=== PATIENT | female | born 1960 | race Caucasian/White ===

== ENCOUNTER 2018-10-21 12:53 | Observation (INO) | payer MEDICARE, BC ==
[2018-10-21 14:53] LABS: ADD MAN DIFF? NO
[2018-10-21 15:08] LABS: BASOPHIL # 0.1 10^3/ul (0.0-0.1); BASOPHILS % 1.1 % (0.0-2.0); EOSINOPHILS # 0.3 10^3/ul (0.0-0.5); EOSINOPHILS % 3.6 % (0.0-7.0); HEMATOCRIT 48.3 % (37.0-47.0); HEMOGLOBIN 15.3 g/dl (12.0-16.0); LYMPHOCYTES # 1.4 10^3/ul (0.8-2.9); LYMPHOCYTES % 16.9 % (15.0-51.0); MEAN CORPUSCULAR HEMOGLOBIN 27.6 pg (29.0-33.0); MEAN CORPUSCULAR HGB CONC 31.7 g/dl (32.0-37.0); MEAN PLATELET VOLUME 10.6 fl (7.4-10.4); MONOCYTE # 0.6 10^3/ul (0.3-0.9); NEUTROPHIL # 5.9 10^3/ul (1.6-7.5); PLATELET COUNT 288 10^3/UL (140-415); RED BLOOD COUNT 5.55 10^6/ul (4.20-5.40); RED CELL DISTRIBUTION WIDTH 17.3 % (11.5-14.5)
[2018-10-21 15:08] LABS: WHITE BLOOD COUNT 8.3 10^3/ul (4.8-10.8)
[2018-10-21 15:30] LABS: ALANINE AMINOTRANSFERASE 12 IU/L (13-69); ALBUMIN 4.5 g/dl (3.3-4.9); ALBUMIN/GLOBULIN RATIO 1.12; ALKALINE PHOSPHATASE 182 IU/L (42-121); ANION GAP 12 (5-13); ASPARTATE AMINO TRANSFERASE 27 IU/L (15-46); BILIRUBIN,INDIRECT 1.1 mg/dl (0-1.1); BILIRUBIN,TOTAL 1.2 mg/dl (0.2-1.3); BLOOD UREA NITROGEN 10 mg/dl (7-20); CALCIUM 10.3 mg/dl (8.4-10.2); CARBON DIOXIDE 25 mmol/L (21-31); CHLORIDE 103 mmol/L (97-110); CREATININE 0.86 mg/dl (0.44-1.00); Estimated GFR > 60 mL/min (>60); GLUCOSE 97 mg/dl (70-220); LIPASE 68 U/L (23-300); POTASSIUM 4.2 mmol/L (3.5-5.1); SODIUM 140 mmol/L (135-144); TOTAL PROTEIN 8.5 g/dl (6.1-8.1)
[2018-10-21 15:36] LABS: ETHANOL < 10.0 mg/dl (0-0)
[2018-10-21] MEDS ORDERED: HYDROCODONE/APAP (10/325) TAB PO (20:30)
[2018-10-21] MEDS ORDERED: PROPRANOLOL 20 MG TAB PO (20:30)
[2018-10-21] MEDS ORDERED: ACETAMINOPHEN 500 MG TAB PO (21:00)
[2018-10-21] MEDS: METOPROLOL 50 MG TAB PO (21:00)
[2018-10-21] MEDS: ALBUTEROL/IPRATROPIUM (NEB) 3 ML AMP HHN (21:30)
[2018-10-21 22:01] LABS: IRON 55 ug/dl (35-150)
[2018-10-21 22:11] LABS: % IRON SATURATION 10 % SAT (22-52); TOTAL IRON BINDING CAPACITY 545 ug/dl (241-421)
[2018-10-21] MEDS: DEXTROSE 5%-0.9% NACL 1,000 ML IV (22:41)
[2018-10-21] MEDS: APIXABAN 5 MG TABLET PO (22:41)
[2018-10-21] MEDS: ZOLPIDEM 5 MG TAB PO (23:08)
[2018-10-22 03:07] LABS: CARCINOEMBRYONIC ANTIGEN 5.7 ng/ml (0.0-5.0)
[2018-10-22] MEDS: PANTOPRAZOLE 40 MG INJ IV (05:44)
[2018-10-22 06:15] LABS: ADD MAN DIFF? NO
[2018-10-22 06:23] LABS: BASOPHIL # 0.1 10^3/ul (0.0-0.1); BASOPHILS % 1.1 % (0.0-2.0); EOSINOPHILS # 0.2 10^3/ul (0.0-0.5); EOSINOPHILS % 4.1 % (0.0-7.0); HEMATOCRIT 42.6 % (37.0-47.0); HEMOGLOBIN 13.2 g/dl (12.0-16.0); LYMPHOCYTES # 1.4 10^3/ul (0.8-2.9); LYMPHOCYTES % 25.4 % (15.0-51.0); MEAN CORPUSCULAR HEMOGLOBIN 27.2 pg (29.0-33.0); MEAN CORPUSCULAR VOLUME 87.8 fl (82.0-101.0); MEAN PLATELET VOLUME 10.1 fl (7.4-10.4); MONOCYTE # 0.5 10^3/ul (0.3-0.9); MONOCYTES % 9.3 % (0.0-11.0); NEUTROPHIL # 3.4 10^3/ul (1.6-7.5); NEUTROPHILS % 59.7 % (39.0-77.0); PLATELET COUNT 229 10^3/UL (140-415); RED BLOOD COUNT 4.85 10^6/ul (4.20-5.40)
[2018-10-22 06:23] LABS: WHITE BLOOD COUNT 5.7 10^3/ul (4.8-10.8)
[2018-10-22 06:52] LABS: ALANINE AMINOTRANSFERASE 11 IU/L (13-69); ALBUMIN 3.8 g/dl (3.3-4.9); ALBUMIN/GLOBULIN RATIO 1.18; ALKALINE PHOSPHATASE 136 IU/L (42-121); ANION GAP 12 (5-13); ASPARTATE AMINO TRANSFERASE 27 IU/L (15-46); BLOOD UREA NITROGEN 11 mg/dl (7-20); CALCIUM 9.7 mg/dl (8.4-10.2); CARBON DIOXIDE 22 mmol/L (21-31); CHLORIDE 105 mmol/L (97-110); CREATININE 0.73 mg/dl (0.44-1.00); Estimated GFR > 60 mL/min (>60); GLUCOSE 78 mg/dl (70-220); POTASSIUM 3.9 mmol/L (3.5-5.1); SODIUM 139 mmol/L (135-144)
[2018-10-22] MEDS: ALBUTEROL/IPRATROPIUM (NEB) 3 ML AMP HHN ×3 (08:35→23:46)
[2018-10-22] MEDS: METOPROLOL 50 MG TAB PO (09:00)
[2018-10-22 09:40] LABS: DIGOXIN 0.9 ng/ml (1.0-2.0)
[2018-10-22] MEDS: MULTIVITAMINS 10 ML, THIAMINE 100 MG, FOLIC ACID 1 MG in SOD CHLORIDE 0.9% 1,000 ML IVPB (09:44)
[2018-10-22] MEDS: NICOTINE (14 MG/24 HR) PATCH TRANSDERM (09:44)
[2018-10-22] MEDS: APIXABAN 5 MG TABLET PO (09:44)
[2018-10-22] MEDS: METOPROLOL (XL) 25 MG TAB PO (11:00)
[2018-10-22 11:01] LABS: OCCULT BLOOD STOOL NEGATIVE (NEGATIVE)
[2018-10-22] MEDS ORDERED: DIGOXIN 0.125 MG TAB PO (13:00)
[2018-10-22 13:19] LABS: PLATELET COUNT 248 10^3/UL (140-415)
[2018-10-22 13:39] LABS: INR 2.02; PROTIME 22.9 Sec (11.9-14.9); PT RATIO 1.8
[2018-10-22 13:40] LABS: PARTIAL THROMBOPLASTIN TIME 41.9 Sec (23.0-35.0); THROMBIN TIME 15.7 SEC (13.8-19.1)
[2018-10-22] MEDS: DIGOXIN 0.125 MG TAB PO (13:53)
[2018-10-22] MEDS ORDERED: ALBUTEROL HFA 8 GM INHALER INH (15:00)
[2018-10-22] MEDS: LIDOCAINE 1% (MPF) 5 ML VIAL (16:00)
[2018-10-22 17:00] LABS: FLUID LD 199 U/L
[2018-10-22 17:01] LABS: FLD PMN% 28.4 %; FLD RBC 0 /uL; FLD WBC 173 /cmm; FLUID GLUCOSE 87 mg/dl; FLUID TOTAL PROTEIN 2.6 g/dl; FLUID TYPE THORACENTESIS FLUID
[2018-10-22 17:13] LABS: FLD CLARITY CLEAR; FLD COLOR YELLOW
[2018-10-22 17:13] LABS: FLD TYPE THORACENTHESIS
[2018-10-22 17:14] LABS: FLD MN% 71.6 %
[2018-10-22] MEDS: POLYETHYLENE GLYCOL 3350 119 GM POWDER PO (18:46)
[2018-10-22] MEDS: LACTULOSE 30ML CUP PO (20:24)
[2018-10-22] MEDS ORDERED: LACTULOSE 30ML CUP PO (21:00)
[2018-10-23] MEDS: LACTULOSE 30ML CUP PO ×4 (00:33→11:50)
[2018-10-23 03:42] LABS: ADD UMIC NO; UR ASCORBIC ACID NEGATIVE (NEGATIVE); UR BILIRUBIN (Dip) NEGATIVE (NEGATIVE); UR BLOOD (Dip) NEGATIVE (NEGATIVE); UR CLARITY CLEAR (CLEAR); UR COLOR YELLOW (YELLOW); UR GLUCOSE (Dip) NEGATIVE (NEGATIVE); UR KETONES (Dip) NEGATIVE (NEGATIVE); UR LEUKOCYTE ESTERASE (Dip) NEGATIVE Leu/ul (NEGATIVE); UR NITRITE (Dip) NEGATIVE (NEGATIVE); UR SPECIFIC GRAVITY (Dip) 1.008 (1.003-1.030); UR TOTAL PROTEIN (Dip) NEGATIVE (NEGATIVE); UR UROBILINOGEN (Dip) 2+ mg/dL (NEGATIVE)
[2018-10-23 04:01] LABS: SODIUM,URINE RANDOM 24 mmol/L (30-90)
[2018-10-23 04:03] LABS: CREATININE,URINE RANDOM 65.42 mg/dl (20-320); PROTEIN/CREAT RATIO 0.36 RATIO
[2018-10-23 04:12] LABS: AMPHETAMINE/METHAMPHETAMINE Negative (NEGATIVE); BARBITURATES Negative (NEGATIVE); BENZODIAZEPINES Positive (NEGATIVE); CANNABINOIDS Negative (NEGATIVE); COCAINE Negative (NEGATIVE); OPIATES Positive (NEGATIVE)
[2018-10-23] MEDS: PANTOPRAZOLE 40 MG INJ IV ×2 (05:25→22:41)
[2018-10-23 05:48] LABS: PLATELET COUNT 246 10^3/UL (140-415)
[2018-10-23 06:04] LABS: INR 1.55; PROTIME 18.7 Sec (11.9-14.9); PT RATIO 1.5
[2018-10-23 06:10] LABS: ALANINE AMINOTRANSFERASE 7 IU/L (13-69); ALBUMIN 4.1 g/dl (3.3-4.9); ALKALINE PHOSPHATASE 146 IU/L (42-121); ASPARTATE AMINO TRANSFERASE 26 IU/L (15-46); BILIRUBIN,INDIRECT 1.2 mg/dl (0-1.1); BILIRUBIN,TOTAL 1.5 mg/dl (0.2-1.3); TOTAL PROTEIN 7.4 g/dl (6.1-8.1)
[2018-10-23 06:17] LABS: DIGOXIN 0.7 ng/ml (1.0-2.0)
[2018-10-23 06:22] LABS: ANION GAP 10 (5-13); BLOOD UREA NITROGEN 9 mg/dl (7-20); CARBON DIOXIDE 25 mmol/L (21-31); CHLORIDE 106 mmol/L (97-110); CREATININE 0.84 mg/dl (0.44-1.00); Estimated GFR > 60 mL/min (>60); GLUCOSE 96 mg/dl (70-220); POTASSIUM 3.9 mmol/L (3.5-5.1); SODIUM 141 mmol/L (135-144)
[2018-10-23] MEDS: ALBUTEROL/IPRATROPIUM (NEB) 3 ML AMP HHN ×2 (09:41→16:00)
[2018-10-23] MEDS: NICOTINE (14 MG/24 HR) PATCH TRANSDERM (09:58)
[2018-10-23] MEDS: METOPROLOL (XL) 25 MG TAB PO (09:58)
[2018-10-23] MEDS: DIGOXIN 0.125 MG TAB PO (13:49)
[2018-10-23] MEDS: PHENYLephrine (100 MCG/ML) 10ML SYG (16:39)
[2018-10-23] MEDS: PROPOFOL 20 ML (16:56)
[2018-10-23] MEDS: EPHEDrine 25 MG/5 ML SYG (16:57)
[2018-10-23] MEDS ORDERED: ONDANSETRON 4 MG INJ IV (17:00)
[2018-10-23] MEDS ORDERED: FENTAnyl 50 MCG/ML VIAL IV (17:00)
[2018-10-23] MEDS ORDERED: HYDROmorphONE 1 MG/5 ML IV SYRINGE IV (17:00)
[2018-10-23] MEDS ORDERED: LABETALOL HCL 20MG INJ IV (17:00)
[2018-10-23] MEDS ORDERED: METOCLOPRAMIDE 10 MG INJ IV (17:00)
[2018-10-23] MEDS ORDERED: hydrALAzine 20 MG INJ IV (17:00)
[2018-10-23] MEDS ORDERED: EPHEDrine SULFATE 50 MG/5 ML SYG IV (17:00)
[2018-10-23] MEDS: METOCLOPRAMIDE 10 MG INJ IV (22:41)
[2018-10-24] MEDS: ALBUTEROL/IPRATROPIUM (NEB) 3 ML AMP HHN ×2 (00:55→08:40)
[2018-10-24] MEDS: PANTOPRAZOLE 40 MG INJ IV (05:08)
[2018-10-24] MEDS: NICOTINE (14 MG/24 HR) PATCH TRANSDERM (09:06)
[2018-10-24] MEDS: METOPROLOL (XL) 25 MG TAB PO (09:08)
== END 2018-10-24 13:14 | disposition home or self-care (01) ==
LOC: E/R 12:53 → PP2 16:08
PROVIDERS: Family Medicine
DX: R19.7 Diarrhea, unspecified (principal); I11.0 Hypertensive heart disease with heart failure; I50.23 Acute on chronic systolic (congestive) heart failure; E11.9 Type 2 diabetes mellitus without complications; J90 Pleural effusion, not elsewhere classified; I25.10 Atherosclerotic heart disease of native coronary artery without angina pectoris; I48.0 Paroxysmal atrial fibrillation; F32.9 Major depressive disorder, single episode, unspecified; E78.5 Hyperlipidemia, unspecified; F17.210 Nicotine dependence, cigarettes, uncomplicated; D64.9 Anemia, unspecified; G47.00 Insomnia, unspecified; Z95.0 Presence of cardiac pacemaker; Z86.73 Personal history of transient ischemic attack (TIA), and cerebral infarction without residual deficits; Z79.01 Long term (current) use of anticoagulants
CPT/HCPCS: 32555; 36415; 71045; 74018; 76705; 80048; 80053; 80076; 80162; 80307; 81003; 82042; 82270; 82378; 82570; 82945; 83036; 83540; 83615; 83690; 83735; 84157; 84300; 85025; 85049; 85610; 85670; 85730; 87070; 87102; 87116; 87205; 88104; 88305; 89051; 89190; 93005; 93306; 94640; 94664; 97162; 99217; 99285-25; G0378

== ENCOUNTER 2018-11-19 10:18 | Observation (INO) | payer MEDICARE, BC ==
[2018-11-19 15:26] LABS: ADD MAN DIFF? NO
[2018-11-19 15:31] LABS: WHITE BLOOD COUNT 6.4 10^3/ul (4.8-10.8)
[2018-11-19 15:31] LABS: BASOPHIL # 0.1 10^3/ul (0.0-0.1); BASOPHILS % 0.9 % (0.0-2.0); EOSINOPHILS # 0.3 10^3/ul (0.0-0.5); EOSINOPHILS % 3.9 % (0.0-7.0); HEMATOCRIT 48.5 % (37.0-47.0); HEMOGLOBIN 15.2 g/dl (12.0-16.0); LYMPHOCYTES # 1.8 10^3/ul (0.8-2.9); LYMPHOCYTES % 27.3 % (15.0-51.0); MEAN CORPUSCULAR HEMOGLOBIN 27.4 pg (29.0-33.0); MEAN CORPUSCULAR HGB CONC 31.3 g/dl (32.0-37.0); MEAN CORPUSCULAR VOLUME 87.5 fl (82.0-101.0); MEAN PLATELET VOLUME 10.1 fl (7.4-10.4); MONOCYTE # 0.4 10^3/ul (0.3-0.9); MONOCYTES % 6.6 % (0.0-11.0); NEUTROPHIL # 3.9 10^3/ul (1.6-7.5); PLATELET COUNT 220 10^3/UL (140-415); RED BLOOD COUNT 5.54 10^6/ul (4.20-5.40); RED CELL DISTRIBUTION WIDTH 17.5 % (11.5-14.5)
[2018-11-19 15:47] LABS: ALANINE AMINOTRANSFERASE 16 IU/L (13-69); ALBUMIN 4.8 g/dl (3.3-4.9); ALBUMIN/GLOBULIN RATIO 1.17; ALKALINE PHOSPHATASE 166 IU/L (42-121); ANION GAP 14 (5-13); ASPARTATE AMINO TRANSFERASE 32 IU/L (15-46); BILIRUBIN,INDIRECT 0.8 mg/dl (0-1.1); BILIRUBIN,TOTAL 0.8 mg/dl (0.2-1.3); BLOOD UREA NITROGEN 8 mg/dl (7-20); CALCIUM 10.4 mg/dl (8.4-10.2); CARBON DIOXIDE 25 mmol/L (21-31); CHLORIDE 102 mmol/L (97-110); CREATININE 0.76 mg/dl (0.44-1.00); Estimated GFR > 60 mL/min (>60); GLUCOSE 103 mg/dl (70-220); LIPASE 52 U/L (23-300); POTASSIUM 3.9 mmol/L (3.5-5.1); SODIUM 141 mmol/L (135-144); TOTAL PROTEIN 8.9 g/dl (6.1-8.1)
[2018-11-19 15:55] LABS: INR 1.13; PROTIME 14.6 Sec (11.9-14.9); PT RATIO 1.1
[2018-11-19 15:59] LABS: B-TYPE NATRIURETIC PEPTIDE 2770 PG/ML (0-125); TROPONIN-I 0.042 ng/ml (0.000-0.120)
[2018-11-19 16:00] LABS: PARTIAL THROMBOPLASTIN TIME 34.7 Sec (23.0-35.0)
[2018-11-19] MEDS: LIDOCAINE 1% (MPF) 5 ML VIAL (16:47)
[2018-11-19] MEDS ORDERED: HYDROCODONE/APAP (10/325) TAB PO (22:15)
[2018-11-19] MEDS: AZITHROMYCIN 500MG/NS (PMX) 250 ML IVPB (22:30)
[2018-11-19] MEDS ORDERED: LORAZEPAM 1 MG TAB PO (22:30)
[2018-11-19] MEDS ORDERED: ZOLPIDEM 5 MG TAB PO (22:30)
[2018-11-19] MEDS ORDERED: NACL 3% FOR INHALATION 15 ML NEBU NEB (22:30)
[2018-11-19] MEDS: METHYLPREDNISOLONE 125 MG INJ IV (22:42)
[2018-11-19] MEDS: ALBUTEROL/IPRATROPIUM (NEB) 3 ML AMP HHN (23:21)
[2018-11-19 23:41] LABS: IRON 60 ug/dl (35-150)
[2018-11-19 23:42] LABS: MAGNESIUM 1.9 mg/dl (1.7-2.5)
[2018-11-19 23:51] LABS: % IRON SATURATION 12 % SAT (22-52); TOTAL IRON BINDING CAPACITY 493 ug/dl (241-421)
[2018-11-20] MEDS: ALBUTEROL/IPRATROPIUM (NEB) 3 ML AMP HHN ×4 (03:00→20:39)
[2018-11-20] MEDS: METHYLPREDNISOLONE 125 MG INJ IV ×3 (06:32→20:24)
[2018-11-20] MEDS: PANTOPRAZOLE (EC) 40 MG TAB PO (06:46)
[2018-11-20 07:16] LABS: ADD MAN DIFF? NO
[2018-11-20 07:20] LABS: BASOPHIL # 0.1 10^3/ul (0.0-0.1); BASOPHILS % 0.9 % (0.0-2.0); EOSINOPHILS # 0.1 10^3/ul (0.0-0.5); HEMATOCRIT 48.2 % (37.0-47.0); HEMOGLOBIN 14.8 g/dl (12.0-16.0); LYMPHOCYTES # 1.2 10^3/ul (0.8-2.9); LYMPHOCYTES % 18.2 % (15.0-51.0); MEAN CORPUSCULAR HGB CONC 30.7 g/dl (32.0-37.0); MEAN CORPUSCULAR VOLUME 87.8 fl (82.0-101.0); MEAN PLATELET VOLUME 11.1 fl (7.4-10.4); MONOCYTE # 0.4 10^3/ul (0.3-0.9); MONOCYTES % 5.7 % (0.0-11.0); NEUTROPHIL # 4.8 10^3/ul (1.6-7.5); NEUTROPHILS % 72.9 % (39.0-77.0); PLATELET COUNT 233 10^3/UL (140-415); RED BLOOD COUNT 5.49 10^6/ul (4.20-5.40); RED CELL DISTRIBUTION WIDTH 18.2 % (11.5-14.5)
[2018-11-20 07:20] LABS: WHITE BLOOD COUNT 6.6 10^3/ul (4.8-10.8)
[2018-11-20 07:38] LABS: ALANINE AMINOTRANSFERASE 11 IU/L (13-69); ALBUMIN 4.6 g/dl (3.3-4.9); ALBUMIN/GLOBULIN RATIO 1.24; ALKALINE PHOSPHATASE 138 IU/L (42-121); ANION GAP 15 (5-13); ASPARTATE AMINO TRANSFERASE 33 IU/L (15-46); BLOOD UREA NITROGEN 10 mg/dl (7-20); CALCIUM 10.3 mg/dl (8.4-10.2); CARBON DIOXIDE 30 mmol/L (21-31); CHLORIDE 98 mmol/L (97-110); CREATININE 0.87 mg/dl (0.44-1.00); Estimated GFR > 60 mL/min (>60); GLUCOSE 104 mg/dl (70-220); SODIUM 143 mmol/L (135-144); TOTAL PROTEIN 8.3 g/dl (6.1-8.1)
[2018-11-20] MEDS: FUROSEMIDE 40 MG TAB PO (09:21)
[2018-11-20] MEDS: AZITHROMYCIN 500MG/NS (PMX) 250 ML IVPB (11:12)
[2018-11-20] MEDS: DIGOXIN 0.125 MG TAB PO (13:00)
[2018-11-20] MEDS: DIPHENHYDRAMINE 25 MG CAP PO (13:11)
[2018-11-21] MEDS: ALBUTEROL/IPRATROPIUM (NEB) 3 ML AMP HHN ×3 (01:53→13:26)
[2018-11-21] MEDS: PANTOPRAZOLE (EC) 40 MG TAB PO (05:27)
[2018-11-21] MEDS: METHYLPREDNISOLONE 40 MG INJ IV ×2 (05:27→08:54)
[2018-11-21 06:06] LABS: PROTEIN, TOTAL 7.5 g/dL (6.1-8.1)
[2018-11-21] MEDS: AZITHROMYCIN 250 MG TAB PO (08:53)
[2018-11-21] MEDS: FUROSEMIDE 40 MG TAB PO (08:54)
[2018-11-21] MEDS: DIGOXIN 0.125 MG TAB PO (12:29)
[2018-11-21 21:47] LABS: ALBUMIN 4.2 g/dL (3.8-4.8); ALPHA-1-GLOBULINS 0.3 g/dL (0.2-0.3); ALPHA-2-GLOBULINS 0.8 g/dL (0.5-0.9); BETA 2 GLOBULINS 0.4 g/dL (0.2-0.5); BETA GLOBULINS 0.5 g/dL (0.4-0.6); GAMMA GLOBULINS 1.3 g/dL (0.8-1.7)
== END 2018-11-21 14:54 | disposition home or self-care (01) ==
LOC: E/R 10:18 → TEL 16:19
DX: R06.03 Acute respiratory distress (principal); J44.9 Chronic obstructive pulmonary disease, unspecified; R19.7 Diarrhea, unspecified; H91.90 Unspecified hearing loss, unspecified ear; F17.200 Nicotine dependence, unspecified, uncomplicated; E11.9 Type 2 diabetes mellitus without complications; K58.9 Irritable bowel syndrome, unspecified; R32 Unspecified urinary incontinence; M40.209 Unspecified kyphosis, site unspecified; E86.0 Dehydration; I27.20 Pulmonary hypertension, unspecified
CPT/HCPCS: 32555; 36415; 71045; 71046; 80053; 80162; 83540; 83690; 83735; 83880; 84155; 84165; 84484; 85025; 85610; 85730; 87070; 89220; 93005; 94640; 94664; 97116; 97162; 97530; 99285-25; G0378

== ENCOUNTER 2018-12-11 10:41 | Observation (INO) | payer MEDICARE, BC ==
[2018-12-11 12:02] LABS: ADD MAN DIFF? NO
[2018-12-11 12:06] LABS: WHITE BLOOD COUNT 6.2 10^3/ul (4.8-10.8)
[2018-12-11 12:06] LABS: BASOPHIL # 0.1 10^3/ul (0.0-0.1); BASOPHILS % 1.3 % (0.0-2.0); EOSINOPHILS # 0.2 10^3/ul (0.0-0.5); EOSINOPHILS % 3.2 % (0.0-7.0); HEMATOCRIT 47.3 % (37.0-47.0); LYMPHOCYTES # 1.5 10^3/ul (0.8-2.9); LYMPHOCYTES % 24.6 % (15.0-51.0); MEAN CORPUSCULAR HEMOGLOBIN 27.9 pg (29.0-33.0); MEAN CORPUSCULAR HGB CONC 31.7 g/dl (32.0-37.0); MEAN CORPUSCULAR VOLUME 88.1 fl (82.0-101.0); MEAN PLATELET VOLUME 10.3 fl (7.4-10.4); MONOCYTE # 0.5 10^3/ul (0.3-0.9); MONOCYTES % 8.3 % (0.0-11.0); NEUTROPHIL # 3.9 10^3/ul (1.6-7.5); NEUTROPHILS % 62.1 % (39.0-77.0); PLATELET COUNT 257 10^3/UL (140-415); RED BLOOD COUNT 5.37 10^6/ul (4.20-5.40); RED CELL DISTRIBUTION WIDTH 18.2 % (11.5-14.5)
[2018-12-11 12:26] LABS: PARTIAL THROMBOPLASTIN TIME 34.2 Sec (23.0-35.0); PROTIME 14.3 Sec (11.9-14.9); PT RATIO 1.1
[2018-12-11 12:31] LABS: ALANINE AMINOTRANSFERASE 20 IU/L (13-69); ALBUMIN 4.6 g/dl (3.3-4.9); ALBUMIN/GLOBULIN RATIO 1.24; ALKALINE PHOSPHATASE 104 IU/L (42-121); AMYLASE 74 U/L (11-123); ANION GAP 13 (5-13); ASPARTATE AMINO TRANSFERASE 31 IU/L (15-46); BILIRUBIN,INDIRECT 0.8 mg/dl (0-1.1); BILIRUBIN,TOTAL 0.8 mg/dl (0.2-1.3); BLOOD UREA NITROGEN 12 mg/dl (7-20); CALCIUM 10.4 mg/dl (8.4-10.2); CARBON DIOXIDE 30 mmol/L (21-31); CHLORIDE 97 mmol/L (97-110); CREATININE 0.89 mg/dl (0.44-1.00); Estimated GFR > 60 mL/min (>60); GLUCOSE 108 mg/dl (70-220); LIPASE 59 U/L (23-300); POTASSIUM 4.1 mmol/L (3.5-5.1); SODIUM 140 mmol/L (135-144); TOTAL PROTEIN 8.3 g/dl (6.1-8.1)
[2018-12-11 12:42] LABS: B-TYPE NATRIURETIC PEPTIDE 2850 PG/ML (0-125); TROPONIN-I 0.096 ng/ml (0.000-0.120)
[2018-12-11] MEDS ORDERED: ONDANSETRON 4 MG INJ IV (13:30)
[2018-12-11] MEDS ORDERED: ACETAMINOPHEN 325 MG TAB PO (13:30)
[2018-12-11] MEDS ORDERED: DIPHENHYDRAMINE 25 MG CAP PO (15:30)
[2018-12-11] MEDS ORDERED: LORAZEPAM 1 MG TAB PO (15:30)
[2018-12-11] MEDS: LIDOCAINE 1% (MPF) 5 ML VIAL (16:54)
[2018-12-11 18:20] LABS: FLD PMN% 34.2 %; FLD RBC 1000 /uL; FLD WBC 272 /cmm
[2018-12-11 18:31] LABS: FLD CLARITY SLIGHTLY CLOUDY; FLD COLOR YELLOW
[2018-12-11 18:31] LABS: FLD TYPE PLEURAL
[2018-12-11 18:33] LABS: FLD MN% 65.8 %
[2018-12-11 19:41] LABS: IRON 37 ug/dl (35-150)
[2018-12-11 19:43] LABS: MAGNESIUM 2.2 mg/dl (1.7-2.5)
[2018-12-11] MEDS ORDERED: PROPRANOLOL 20 MG TAB (19:44)
[2018-12-11 19:50] LABS: % IRON SATURATION 8 % SAT (22-52); TOTAL IRON BINDING CAPACITY 488 ug/dl (241-421)
[2018-12-11 19:52] LABS: B-TYPE NATRIURETIC PEPTIDE 2670 PG/ML (0-125)
[2018-12-11 19:56] LABS: DIGOXIN 0.8 ng/ml (1.0-2.0)
[2018-12-11] MEDS ORDERED: HYDROCODONE/APAP (10/325) TAB PO (21:00)
[2018-12-11] MEDS ORDERED: NON-FORMULARY/PATIENT OWN MED (Ubidecarenone* (Co Q-10*) 200 MG) PO (21:00)
[2018-12-11] MEDS: PROPRANOLOL 20 MG TAB PO (21:06)
[2018-12-11] MEDS: NICOTINE (14 MG/24 HR) PATCH TRANSDERM (21:23)
[2018-12-11] MEDS: HYDROCODONE/APAP (10/325) TAB PO (21:29)
[2018-12-11] MEDS: ZOLPIDEM 5 MG TAB PO (22:15)
[2018-12-12] MEDS: PROPRANOLOL 20 MG TAB PO (06:00)
[2018-12-12] MEDS: PANTOPRAZOLE (EC) 40 MG TAB PO (06:01)
[2018-12-12] MEDS ORDERED: NICOTINE (7 MG/24 HR) PATCH TRANSDERM (09:00)
[2018-12-12] MEDS ORDERED: DIGOXIN 0.125 MG TAB PO (09:00)
[2018-12-12] MEDS ORDERED: FUROSEMIDE 40 MG TAB PO (09:00)
[2018-12-12] MEDS: BUPROPION (SR) 100 MG TAB PO (09:06)
[2018-12-12] MEDS: NICOTINE (14 MG/24 HR) PATCH TRANSDERM (09:07)
[2018-12-12] MEDS: FUROSEMIDE 20 MG INJ IV (09:14)
[2018-12-12] MEDS: DIGOXIN 0.125 MG TAB PO (09:14)
[2018-12-13 08:51] LABS: PROTEIN, TOTAL 7.7 g/dL (6.1-8.1)
[2018-12-13 11:56] LABS: ALBUMIN 4.5 g/dL (3.8-4.8); ALPHA-1-GLOBULINS 0.3 g/dL (0.2-0.3); ALPHA-2-GLOBULINS 0.9 g/dL (0.5-0.9); BETA 2 GLOBULINS 0.5 g/dL (0.2-0.5); BETA GLOBULINS 0.5 g/dL (0.4-0.6); GAMMA GLOBULINS 1.1 g/dL (0.8-1.7)
== END 2018-12-12 11:40 | disposition home or self-care (01) ==
LOC: E/R 10:41 → PP2 13:21
DX: J44.1 Chronic obstructive pulmonary disease with (acute) exacerbation (principal); R06.03 Acute respiratory distress; J90 Pleural effusion, not elsewhere classified; K59.00 Constipation, unspecified; F17.200 Nicotine dependence, unspecified, uncomplicated; E11.9 Type 2 diabetes mellitus without complications; K58.9 Irritable bowel syndrome, unspecified; I48.2 Chronic atrial fibrillation; E86.0 Dehydration; R06.02 Shortness of breath
CPT/HCPCS: 32555; 71045; 71046; 80053; 80162; 82042; 82150; 83540; 83605; 83690; 83735; 83880; 83986; 84155; 84165; 84484; 85025; 85610; 85730; 87070; 87102; 87116; 88104; 88305; 89051; 93005; 99285-25; G0378

== ENCOUNTER 2019-01-26 22:34 | Inpatient (IN) | payer MEDICARE, BC ==
[2019-01-27] MEDS: FUROSEMIDE 20 MG INJ IV ×4 (01:00→21:04)
[2019-01-27] MEDS ORDERED: ALBUTEROL/IPRATROPIUM (NEB) 3 ML AMP HHN (01:00)
[2019-01-27] MEDS: POTASSIUM CHLORIDE (SR) 20 MEQ TAB PO ×4 (01:36→21:03)
[2019-01-27] MEDS: ZOLPIDEM 5 MG TAB PO ×2 (01:37→21:02)
[2019-01-27 01:41] LABS: ADD MAN DIFF? NO
[2019-01-27 01:45] LABS: WHITE BLOOD COUNT 7.6 10^3/ul (4.8-10.8)
[2019-01-27 01:45] LABS: BASOPHIL # 0.1 10^3/ul (0.0-0.1); BASOPHILS % 1.2 % (0.0-2.0); EOSINOPHILS # 0.5 10^3/ul (0.0-0.5); EOSINOPHILS % 6.9 % (0.0-7.0); HEMATOCRIT 41.4 % (37.0-47.0); HEMOGLOBIN 13.1 g/dl (12.0-16.0); LYMPHOCYTES # 1.4 10^3/ul (0.8-2.9); LYMPHOCYTES % 17.8 % (15.0-51.0); MEAN CORPUSCULAR HEMOGLOBIN 28.5 pg (29.0-33.0); MEAN CORPUSCULAR HGB CONC 31.6 g/dl (32.0-37.0); MEAN PLATELET VOLUME 10.4 fl (7.4-10.4); MONOCYTE # 0.6 10^3/ul (0.3-0.9); MONOCYTES % 8.2 % (0.0-11.0); NEUTROPHILS % 65.5 % (39.0-77.0); PLATELET COUNT 283 10^3/UL (140-415); RED CELL DISTRIBUTION WIDTH 17.9 % (11.5-14.5)
[2019-01-27] MEDS: NICOTINE (7 MG/24 HR) PATCH TRANSDERM ×2 (01:52→09:00)
[2019-01-27 02:05] LABS: INR 1.27; PT RATIO 1.3
[2019-01-27 02:06] LABS: ANION GAP 9 (5-13); BLOOD UREA NITROGEN 8 mg/dl (7-20); CALCIUM 9.7 mg/dl (8.4-10.2); CARBON DIOXIDE 31 mmol/L (21-31); CHLORIDE 101 mmol/L (97-110); CREATININE 0.89 mg/dl (0.44-1.00); Estimated GFR > 60 mL/min (>60); GLUCOSE 89 mg/dl (70-220); IRON 38 ug/dl (35-150); MAGNESIUM 2.1 mg/dl (1.7-2.5); PARTIAL THROMBOPLASTIN TIME 37.6 Sec (23.0-35.0); POTASSIUM 3.7 mmol/L (3.5-5.1); SODIUM 141 mmol/L (135-144)
[2019-01-27 02:10] LABS: C-REACTIVE PROTEIN HIGH SENSI 0.96 mg/dl (0.00-0.74)
[2019-01-27 02:16] LABS: % IRON SATURATION 9 % SAT (22-52); TOTAL IRON BINDING CAPACITY 431 ug/dl (241-421)
[2019-01-27 02:53] LABS: ERYTHROCYTE SEDIMENTATION RATE 25 mm/Hr (0-30)
[2019-01-27] MEDS: ALBUTEROL/IPRATROPIUM (NEB) 3 ML AMP HHN ×5 (08:00→22:17)
[2019-01-27] MEDS: SPIRONOLACTONE 25 MG TAB PO (08:28)
[2019-01-27] MEDS: ENALAPRIL 2.5 MG TAB PO (08:30)
[2019-01-27] MEDS ORDERED: SPIRONOLACTONE 25 MG TAB PO (09:00)
[2019-01-27 09:07] LABS: ADD UMIC NO; UR ASCORBIC ACID 40 mg/dL (NEGATIVE); UR BILIRUBIN (Dip) NEGATIVE (NEGATIVE); UR BLOOD (Dip) NEGATIVE (NEGATIVE); UR CLARITY CLEAR (CLEAR); UR COLOR YELLOW (YELLOW); UR GLUCOSE (Dip) NEGATIVE (NEGATIVE); UR KETONES (Dip) NEGATIVE (NEGATIVE); UR LEUKOCYTE ESTERASE (Dip) NEGATIVE Leu/ul (NEGATIVE); UR NITRITE (Dip) NEGATIVE (NEGATIVE); UR SPECIFIC GRAVITY (Dip) 1.011 (1.003-1.030); UR TOTAL PROTEIN (Dip) NEGATIVE (NEGATIVE); UR UROBILINOGEN (Dip) 2+ mg/dL (NEGATIVE)
[2019-01-27] MEDS: LIDOCAINE 1% (MPF) 5 ML VIAL (10:08)
[2019-01-27 12:39] LABS: B-TYPE NATRIURETIC PEPTIDE 3100 PG/ML (0-125)
[2019-01-27 12:52] LABS: FLD MN% 60.2 %; FLD PMN% 39.8 %; FLD RBC 0 /uL; FLD WBC 229 /cmm
[2019-01-27 13:00] LABS: CARCINOEMBRYONIC ANTIGEN 5.8 ng/ml (0.0-5.0)
[2019-01-27 13:15] LABS: FLD TYPE PLEURAL
[2019-01-27 13:16] LABS: FLD CLARITY SLIGHTLY HAZY; FLD COLOR YELLOW
[2019-01-27 13:24] LABS: AADO2 Arterial 132.3 mmHg (7.0-24.0); Allen Test ACCEPTAB; Arterial Base Excess -8.2 mmol/L (-3.0-3); Arterial COHb 0.4 % (0.0-3.0); Arterial Fraction of Oxyhgb 91.4 % (93.0-99.0); Arterial HCO3 15.1 mmol/L (22.0-26.0); Arterial MetHb 0.3 % (0.0-1.5); Arterial pCO2 26.1 mmhg (35-45); MODE NASAL CANNULA; Site Left Radial
[2019-01-27 13:45] LABS: PATH REVIEW Y
[2019-01-27] MEDS: SOD FERRIC GLUC COMPLX 125 MG in SOD CHLORIDE 0.9% 100 ML IVPB (13:51)
[2019-01-27 13:53] LABS: FLUID GLUCOSE 107 mg/dl; FLUID TYPE PLEURAL FLUID
[2019-01-27 13:54] LABS: FLUID LD 212 U/L; FLUID TOTAL PROTEIN 2.4 g/dl; FLUID TYPE PLEURAL FLUID
[2019-01-27] MEDS: PANTOPRAZOLE (EC) 40 MG TAB PO (14:41)
[2019-01-27] MEDS: CHLORDIAZEPOXIDE 5 MG CAP PO ×2 (18:18→23:17)
[2019-01-28] MEDS: ALBUTEROL/IPRATROPIUM (NEB) 3 ML AMP HHN ×7 (00:57→19:44)
[2019-01-28] MEDS: PANTOPRAZOLE (EC) 40 MG TAB PO (05:05)
[2019-01-28] MEDS: POTASSIUM CHLORIDE (SR) 20 MEQ TAB PO (05:05)
[2019-01-28] MEDS: FUROSEMIDE 20 MG INJ IV ×3 (05:06→22:00)
[2019-01-28] MEDS: CHLORDIAZEPOXIDE 5 MG CAP PO ×3 (05:06→17:36)
[2019-01-28 05:12] LABS: ADD MAN DIFF? NO
[2019-01-28 05:15] LABS: BASOPHIL # 0.1 10^3/ul (0.0-0.1); BASOPHILS % 0.7 % (0.0-2.0); EOSINOPHILS # 0.2 10^3/ul (0.0-0.5); EOSINOPHILS % 1.7 % (0.0-7.0); HEMATOCRIT 46.1 % (37.0-47.0); HEMOGLOBIN 14.1 g/dl (12.0-16.0); LYMPHOCYTES # 1.1 10^3/ul (0.8-2.9); LYMPHOCYTES % 8.9 % (15.0-51.0); MEAN CORPUSCULAR HEMOGLOBIN 28.7 pg (29.0-33.0); MEAN CORPUSCULAR HGB CONC 30.6 g/dl (32.0-37.0); MEAN CORPUSCULAR VOLUME 93.9 fl (82.0-101.0); MEAN PLATELET VOLUME 10.4 fl (7.4-10.4); MONOCYTE # 0.7 10^3/ul (0.3-0.9); MONOCYTES % 5.6 % (0.0-11.0); NEUTROPHIL # 10.1 10^3/ul (1.6-7.5); NEUTROPHILS % 82.6 % (39.0-77.0); PLATELET COUNT 297 10^3/UL (140-415); RED BLOOD COUNT 4.91 10^6/ul (4.20-5.40); RED CELL DISTRIBUTION WIDTH 17.2 % (11.5-14.5)
[2019-01-28 05:15] LABS: WHITE BLOOD COUNT 12.2 10^3/ul (4.8-10.8)
[2019-01-28 05:53] LABS: ALANINE AMINOTRANSFERASE 16 IU/L (13-69); ALBUMIN 4.2 g/dl (3.3-4.9); ALBUMIN/GLOBULIN RATIO 1.13; ALKALINE PHOSPHATASE 108 IU/L (42-121); ANION GAP 8 (5-13); ASPARTATE AMINO TRANSFERASE 40 IU/L (15-46); BILIRUBIN,INDIRECT 1.4 mg/dl (0-1.1); BILIRUBIN,TOTAL 1.4 mg/dl (0.2-1.3); BLOOD UREA NITROGEN 10 mg/dl (7-20); CALCIUM 9.8 mg/dl (8.4-10.2); CARBON DIOXIDE 30 mmol/L (21-31); CHLORIDE 102 mmol/L (97-110); CREATININE 0.78 mg/dl (0.44-1.00); Estimated GFR > 60 mL/min (>60); GLUCOSE 89 mg/dl (70-220); POTASSIUM 5.2 mmol/L (3.5-5.1); SODIUM 140 mmol/L (135-144); TOTAL PROTEIN 7.9 g/dl (6.1-8.1)
[2019-01-28] MEDS ORDERED: PANTOPRAZOLE 40 MG INJ IV (06:00)
[2019-01-28 07:15] LABS: AADO2 Arterial 495.4 mmHg (7.0-24.0); Allen Test ACCEPTAB; Arterial Base Excess -0.2 mmol/L (-3.0-3); Arterial Blood Gas Oxygen Sat 99.2 mmHG (95.0-98.0); Arterial COHb 0.5 % (0.0-3.0); Arterial Fraction of Oxyhgb 98.4 % (93.0-99.0); Arterial HCO3 26.1 mmol/L (22.0-26.0); Arterial MetHb 0.3 % (0.0-1.5); Arterial pCO2 48.9 mmhg (35-45); MODE MASK - NRB; Site Left Radial
[2019-01-28 07:21] LABS: PHOSPHORUS 3.5 mg/dl (2.5-4.9)
[2019-01-28 07:21] LABS: MAGNESIUM 2.2 mg/dl (1.7-2.5)
[2019-01-28] MEDS: NICOTINE (7 MG/24 HR) PATCH TRANSDERM (08:51)
[2019-01-28] MEDS: MULTIVITAMINS THERAPEUTIC TAB PO (08:53)
[2019-01-28] MEDS: SPIRONOLACTONE 25 MG TAB PO (08:53)
[2019-01-28] MEDS: ENALAPRIL 2.5 MG TAB PO (09:00)
[2019-01-28] MEDS: SOD CHLORIDE 0.9% 100 ML (10:42)
[2019-01-28] MEDS: IOHEXOL 100 ML (10:43)
[2019-01-28] MEDS: SOD FERRIC GLUC COMPLX 125 MG in SOD CHLORIDE 0.9% 100 ML IVPB (13:07)
[2019-01-28 15:19] LABS: ANION GAP 6 (5-13); BLOOD UREA NITROGEN 10 mg/dl (7-20); CALCIUM 9.4 mg/dl (8.4-10.2); CARBON DIOXIDE 30 mmol/L (21-31); CHLORIDE 101 mmol/L (97-110); CREATININE 0.84 mg/dl (0.44-1.00); Estimated GFR > 60 mL/min (>60); GLUCOSE 95 mg/dl (70-220); POTASSIUM 4.6 mmol/L (3.5-5.1); SODIUM 137 mmol/L (135-144)
[2019-01-28] MEDS ORDERED: ALBUTEROL/IPRATROPIUM (NEB) 3 ML AMP HHN (16:00)
[2019-01-29] MEDS: CHLORDIAZEPOXIDE 5 MG CAP PO ×5 (00:29→23:44)
[2019-01-29] MEDS: ALBUTEROL/IPRATROPIUM (NEB) 3 ML AMP HHN ×6 (01:15→20:04)
[2019-01-29] MEDS: FUROSEMIDE 20 MG INJ IV ×3 (05:29→22:00)
[2019-01-29 05:35] LABS: ADD MAN DIFF? NO
[2019-01-29 05:57] LABS: WHITE BLOOD COUNT 12.1 10^3/ul (4.8-10.8)
[2019-01-29 05:57] LABS: BASOPHIL # 0.1 10^3/ul (0.0-0.1); BASOPHILS % 0.5 % (0.0-2.0); EOSINOPHILS # 0.4 10^3/ul (0.0-0.5); EOSINOPHILS % 3.6 % (0.0-7.0); HEMATOCRIT 40.3 % (37.0-47.0); HEMOGLOBIN 12.6 g/dl (12.0-16.0); LYMPHOCYTES # 1.1 10^3/ul (0.8-2.9); LYMPHOCYTES % 8.9 % (15.0-51.0); MEAN CORPUSCULAR HEMOGLOBIN 28.7 pg (29.0-33.0); MEAN CORPUSCULAR HGB CONC 31.3 g/dl (32.0-37.0); MEAN CORPUSCULAR VOLUME 91.8 fl (82.0-101.0); MEAN PLATELET VOLUME 10.5 fl (7.4-10.4); MONOCYTE # 0.8 10^3/ul (0.3-0.9); MONOCYTES % 6.5 % (0.0-11.0); NEUTROPHIL # 9.7 10^3/ul (1.6-7.5); NEUTROPHILS % 80.1 % (39.0-77.0); PLATELET COUNT 278 10^3/UL (140-415); RED BLOOD COUNT 4.39 10^6/ul (4.20-5.40); RED CELL DISTRIBUTION WIDTH 17.2 % (11.5-14.5)
[2019-01-29] MEDS: PANTOPRAZOLE (EC) 40 MG TAB PO (06:01)
[2019-01-29 06:13] LABS: ANION GAP 9 (5-13); BLOOD UREA NITROGEN 11 mg/dl (7-20); CALCIUM 9.5 mg/dl (8.4-10.2); CARBON DIOXIDE 28 mmol/L (21-31); CHLORIDE 101 mmol/L (97-110); CREATININE 0.72 mg/dl (0.44-1.00); Estimated GFR > 60 mL/min (>60); GLUCOSE 104 mg/dl (70-220); PHOSPHORUS 2.6 mg/dl (2.5-4.9); POTASSIUM 4.1 mmol/L (3.5-5.1); SODIUM 138 mmol/L (135-144)
[2019-01-29 07:47] LABS: AADO2 Arterial 270.5 mmHg (7.0-24.0); Allen Test ACCEPTAB; Arterial Base Excess 2.8 mmol/L (-3.0-3); Arterial Blood Gas Oxygen Sat 98.3 mmHG (95.0-98.0); Arterial COHb 0.5 % (0.0-3.0); Arterial Fraction of Oxyhgb 97.4 % (93.0-99.0); Arterial HCO3 27.2 mmol/L (22.0-26.0); Arterial MetHb 0.4 % (0.0-1.5); MODE HFNC; Site Left Radial
[2019-01-29] MEDS: NICOTINE (7 MG/24 HR) PATCH TRANSDERM (08:32)
[2019-01-29] MEDS: MULTIVITAMINS THERAPEUTIC TAB PO (08:32)
[2019-01-29] MEDS: LIDOCAINE 1% (MPF) 5 ML VIAL (11:08)
[2019-01-29] MEDS: SOD FERRIC GLUC COMPLX 125 MG in SOD CHLORIDE 0.9% 100 ML IVPB (13:23)
[2019-01-29] MEDS: ENOXAPARIN 60 MG/0.6 ML SYG SC (21:41)
[2019-01-30] MEDS: ALBUTEROL/IPRATROPIUM (NEB) 3 ML AMP HHN ×5 (00:21→21:00)
[2019-01-30 05:05] LABS: ADD MAN DIFF? NO
[2019-01-30 05:11] LABS: WHITE BLOOD COUNT 10.7 10^3/ul (4.8-10.8)
[2019-01-30 05:11] LABS: BASOPHIL # 0.1 10^3/ul (0.0-0.1); BASOPHILS % 0.7 % (0.0-2.0); EOSINOPHILS # 0.7 10^3/ul (0.0-0.5); EOSINOPHILS % 6.6 % (0.0-7.0); HEMATOCRIT 39.5 % (37.0-47.0); HEMOGLOBIN 12.4 g/dl (12.0-16.0); LYMPHOCYTES # 1.6 10^3/ul (0.8-2.9); LYMPHOCYTES % 14.6 % (15.0-51.0); MEAN CORPUSCULAR HEMOGLOBIN 28.6 pg (29.0-33.0); MEAN CORPUSCULAR HGB CONC 31.4 g/dl (32.0-37.0); MEAN CORPUSCULAR VOLUME 91.2 fl (82.0-101.0); MEAN PLATELET VOLUME 10.6 fl (7.4-10.4); MONOCYTE # 0.9 10^3/ul (0.3-0.9); MONOCYTES % 8.4 % (0.0-11.0); NEUTROPHIL # 7.4 10^3/ul (1.6-7.5); NEUTROPHILS % 69.2 % (39.0-77.0); PLATELET COUNT 277 10^3/UL (140-415); RED BLOOD COUNT 4.33 10^6/ul (4.20-5.40); RED CELL DISTRIBUTION WIDTH 17.2 % (11.5-14.5)
[2019-01-30 05:28] LABS: ANION GAP 6 (5-13); BLOOD UREA NITROGEN 13 mg/dl (7-20); CALCIUM 9.5 mg/dl (8.4-10.2); CARBON DIOXIDE 30 mmol/L (21-31); CHLORIDE 102 mmol/L (97-110); CREATININE 0.72 mg/dl (0.44-1.00); Estimated GFR > 60 mL/min (>60); GLUCOSE 91 mg/dl (70-220); POTASSIUM 3.9 mmol/L (3.5-5.1); SODIUM 138 mmol/L (135-144)
[2019-01-30] MEDS: CHLORDIAZEPOXIDE 5 MG CAP PO ×2 (06:00→12:00)
[2019-01-30] MEDS: FUROSEMIDE 20 MG INJ IV ×3 (06:00→22:00)
[2019-01-30] MEDS: PANTOPRAZOLE (EC) 40 MG TAB PO (06:17)
[2019-01-30] MEDS: NICOTINE (7 MG/24 HR) PATCH TRANSDERM (09:02)
[2019-01-30] MEDS: ENOXAPARIN 60 MG/0.6 ML SYG SC ×2 (09:05→20:56)
[2019-01-30] MEDS: MULTIVITAMINS THERAPEUTIC TAB PO (09:05)
[2019-01-30] MEDS: LISINOPRIL 5 MG TAB PO (10:00)
[2019-01-31] MEDS: ALBUTEROL/IPRATROPIUM (NEB) 3 ML AMP HHN ×6 (01:21→20:33)
[2019-01-31 05:36] LABS: ADD MAN DIFF? NO
[2019-01-31 05:37] LABS: WHITE BLOOD COUNT 8.9 10^3/ul (4.8-10.8)
[2019-01-31 05:37] LABS: BASOPHIL # 0.1 10^3/ul (0.0-0.1); BASOPHILS % 0.8 % (0.0-2.0); EOSINOPHILS # 0.8 10^3/ul (0.0-0.5); EOSINOPHILS % 8.9 % (0.0-7.0); HEMATOCRIT 43.2 % (37.0-47.0); HEMOGLOBIN 13.4 g/dl (12.0-16.0); LYMPHOCYTES # 1.3 10^3/ul (0.8-2.9); LYMPHOCYTES % 14.3 % (15.0-51.0); MEAN CORPUSCULAR HEMOGLOBIN 28.6 pg (29.0-33.0); MEAN CORPUSCULAR VOLUME 92.1 fl (82.0-101.0); MEAN PLATELET VOLUME 10.5 fl (7.4-10.4); MONOCYTE # 0.6 10^3/ul (0.3-0.9); MONOCYTES % 6.8 % (0.0-11.0); NEUTROPHIL # 6.1 10^3/ul (1.6-7.5); NEUTROPHILS % 68.9 % (39.0-77.0); PLATELET COUNT 300 10^3/UL (140-415); RED BLOOD COUNT 4.69 10^6/ul (4.20-5.40); RED CELL DISTRIBUTION WIDTH 17.7 % (11.5-14.5)
[2019-01-31] MEDS: FUROSEMIDE 20 MG INJ IV ×2 (06:03→17:33)
[2019-01-31] MEDS: PANTOPRAZOLE (EC) 40 MG TAB PO (06:03)
[2019-01-31 06:23] LABS: ALANINE AMINOTRANSFERASE 7 IU/L (13-69); ALBUMIN 4.1 g/dl (3.3-4.9); ALBUMIN/GLOBULIN RATIO 1.17; ALKALINE PHOSPHATASE 93 IU/L (42-121); ANION GAP 10 (5-13); ASPARTATE AMINO TRANSFERASE 22 IU/L (15-46); BILIRUBIN,INDIRECT 1.1 mg/dl (0-1.1); BILIRUBIN,TOTAL 1.1 mg/dl (0.2-1.3); BLOOD UREA NITROGEN 13 mg/dl (7-20); CALCIUM 9.9 mg/dl (8.4-10.2); CARBON DIOXIDE 27 mmol/L (21-31); CHLORIDE 103 mmol/L (97-110); CREATININE 0.76 mg/dl (0.44-1.00); Estimated GFR > 60 mL/min (>60); GLUCOSE 122 mg/dl (70-220); POTASSIUM 4.1 mmol/L (3.5-5.1); SODIUM 140 mmol/L (135-144); TOTAL PROTEIN 7.6 g/dl (6.1-8.1)
[2019-01-31] MEDS: LISINOPRIL 5 MG TAB PO (08:01)
[2019-01-31] MEDS: ENOXAPARIN 60 MG/0.6 ML SYG SC ×2 (09:00→20:24)
[2019-01-31] MEDS: MULTIVITAMINS THERAPEUTIC TAB PO (10:29)
[2019-01-31] MEDS: NICOTINE (7 MG/24 HR) PATCH TRANSDERM (10:30)
[2019-01-31] MEDS: LIDOCAINE 1% (MPF) 5 ML VIAL (12:38)
[2019-02-01] MEDS: ALBUTEROL/IPRATROPIUM (NEB) 3 ML AMP HHN ×6 (00:04→20:38)
[2019-02-01] MEDS: PANTOPRAZOLE (EC) 40 MG TAB PO (05:47)
[2019-02-01] MEDS: FUROSEMIDE 20 MG INJ IV ×2 (05:48→19:05)
[2019-02-01] MEDS: LISINOPRIL 5 MG TAB PO (08:45)
[2019-02-01] MEDS: MULTIVITAMINS THERAPEUTIC TAB PO (08:53)
[2019-02-01] MEDS: NICOTINE (7 MG/24 HR) PATCH TRANSDERM (08:54)
[2019-02-01] MEDS: ENOXAPARIN 60 MG/0.6 ML SYG SC ×2 (09:39→21:27)
[2019-02-01] MEDS: CIPROFLOXACIN 400MG/D5W 200 ML IVPB ×2 (12:35→21:00)
[2019-02-01] MEDS: TIOTROPIUM 18 MCG CAPSULE INHA DEV INH (13:00)
[2019-02-01] MEDS: COSYNTROPIN 0.25 MG INJ IV (14:35)
[2019-02-01] MEDS: MONTELUKAST 10 MG TAB PO (21:17)
[2019-02-02] MEDS: ALBUTEROL/IPRATROPIUM (NEB) 3 ML AMP HHN ×6 (01:21→21:58)
[2019-02-02] MEDS: ZOLPIDEM 5 MG TAB PO (02:35)
[2019-02-02] MEDS: FUROSEMIDE 20 MG INJ IV ×2 (05:47→17:01)
[2019-02-02] MEDS: PANTOPRAZOLE (EC) 40 MG TAB PO (05:47)
[2019-02-02 08:34] LABS: ADD MAN DIFF? NO
[2019-02-02] MEDS: CIPROFLOXACIN 400MG/D5W 200 ML IVPB ×3 (08:35→20:26)
[2019-02-02] MEDS: MULTIVITAMINS THERAPEUTIC TAB PO (08:35)
[2019-02-02] MEDS: NICOTINE (7 MG/24 HR) PATCH TRANSDERM (08:36)
[2019-02-02] MEDS: TIOTROPIUM 18 MCG CAPSULE INHA DEV INH (08:37)
[2019-02-02] MEDS: LISINOPRIL 5 MG TAB PO (08:37)
[2019-02-02 08:39] LABS: BASOPHIL # 0.1 10^3/ul (0.0-0.1); BASOPHILS % 0.5 % (0.0-2.0); EOSINOPHILS # 0.9 10^3/ul (0.0-0.5); EOSINOPHILS % 8.9 % (0.0-7.0); HEMATOCRIT 40.3 % (37.0-47.0); HEMOGLOBIN 12.8 g/dl (12.0-16.0); LYMPHOCYTES # 1.6 10^3/ul (0.8-2.9); LYMPHOCYTES % 16.9 % (15.0-51.0); MEAN CORPUSCULAR HEMOGLOBIN 28.8 pg (29.0-33.0); MEAN CORPUSCULAR HGB CONC 31.8 g/dl (32.0-37.0); MEAN CORPUSCULAR VOLUME 90.6 fl (82.0-101.0); MEAN PLATELET VOLUME 10.4 fl (7.4-10.4); MONOCYTE # 0.7 10^3/ul (0.3-0.9); MONOCYTES % 7.5 % (0.0-11.0); NEUTROPHIL # 6.3 10^3/ul (1.6-7.5); NEUTROPHILS % 65.6 % (39.0-77.0); PLATELET COUNT 298 10^3/UL (140-415); RED BLOOD COUNT 4.45 10^6/ul (4.20-5.40); RED CELL DISTRIBUTION WIDTH 17.2 % (11.5-14.5)
[2019-02-02 08:39] LABS: WHITE BLOOD COUNT 9.6 10^3/ul (4.8-10.8)
[2019-02-02] MEDS: ENOXAPARIN 60 MG/0.6 ML SYG SC ×2 (08:46→20:52)
[2019-02-02 09:07] LABS: ALANINE AMINOTRANSFERASE 17 IU/L (13-69); ALBUMIN 3.7 g/dl (3.3-4.9); ALBUMIN/GLOBULIN RATIO 1.02; ALKALINE PHOSPHATASE 93 IU/L (42-121); ANION GAP 11 (5-13); ASPARTATE AMINO TRANSFERASE 22 IU/L (15-46); BILIRUBIN,INDIRECT 0.8 mg/dl (0-1.1); BILIRUBIN,TOTAL 0.8 mg/dl (0.2-1.3); BLOOD UREA NITROGEN 13 mg/dl (7-20); CALCIUM 9.2 mg/dl (8.4-10.2); CARBON DIOXIDE 29 mmol/L (21-31); CHLORIDE 99 mmol/L (97-110); Estimated GFR > 60 mL/min (>60); GLUCOSE 104 mg/dl (70-220); POTASSIUM 3.1 mmol/L (3.5-5.1); SODIUM 139 mmol/L (135-144); TOTAL PROTEIN 7.3 g/dl (6.1-8.1)
[2019-02-02] MEDS: MONTELUKAST 10 MG TAB PO (20:19)
[2019-02-03] MEDS: ZOLPIDEM 5 MG TAB PO (00:04)
[2019-02-03] MEDS: ALBUTEROL/IPRATROPIUM (NEB) 3 ML AMP HHN ×5 (01:31→16:54)
[2019-02-03] MEDS: PANTOPRAZOLE (EC) 40 MG TAB PO (05:16)
[2019-02-03] MEDS: FUROSEMIDE 20 MG INJ IV ×2 (05:19→17:43)
[2019-02-03] MEDS: CIPROFLOXACIN 400MG/D5W 200 ML IVPB (08:39)
[2019-02-03] MEDS: TIOTROPIUM 18 MCG CAPSULE INHA DEV INH (08:39)
[2019-02-03] MEDS: MULTIVITAMINS THERAPEUTIC TAB PO (08:39)
[2019-02-03] MEDS: LISINOPRIL 5 MG TAB PO (08:39)
[2019-02-03] MEDS: NICOTINE (7 MG/24 HR) PATCH TRANSDERM (08:40)
[2019-02-03] MEDS: ENOXAPARIN 60 MG/0.6 ML SYG SC (08:45)
[2019-02-03] MEDS: POTASSIUM CHLORIDE (SR) 20 MEQ TAB PO (10:01)
[2019-02-03] MEDS: LIDOCAINE 1% (MPF) 5 ML VIAL (15:45)
== END 2019-02-03 21:25 | disposition home or self-care (01) | DRG 291 ==
LOC: 6WM 02-01 14:27 → ICU 01-27 12:44 → TEL 02-01 18:36
PROVIDERS: Family Medicine
PROC: 0W9930Z Drainage of Right Pleural Cavity with Drainage Device, Percutaneous Approach (ICD-10-PCS; principal; 2019-01-27)
PROC: 0W9930Z Drainage of Right Pleural Cavity with Drainage Device, Percutaneous Approach (ICD-10-PCS; 2019-01-29)
PROC: 0W9930Z Drainage of Right Pleural Cavity with Drainage Device, Percutaneous Approach (ICD-10-PCS; 2019-01-31)
PROC: 0W9930Z Drainage of Right Pleural Cavity with Drainage Device, Percutaneous Approach (ICD-10-PCS; 2019-02-03)
DX: I11.0 Hypertensive heart disease with heart failure (principal); J96.21 Acute and chronic respiratory failure with hypoxia; J44.1 Chronic obstructive pulmonary disease with (acute) exacerbation; J90 Pleural effusion, not elsewhere classified; E46 Unspecified protein-calorie malnutrition; D68.69 Other thrombophilia; J95.811 Postprocedural pneumothorax; E87.2 Acidosis; N39.0 Urinary tract infection, site not specified; I50.43 Acute on chronic combined systolic (congestive) and diastolic (congestive) heart failure; I42.9 Cardiomyopathy, unspecified; Z95.0 Presence of cardiac pacemaker; Z68.26 Body mass index [BMI] 26.0-26.9, adult; R32 Unspecified urinary incontinence; R15.9 Full incontinence of feces; F43.10 Post-traumatic stress disorder, unspecified; R97.0 Elevated carcinoembryonic antigen [CEA]; E11.9 Type 2 diabetes mellitus without complications; E86.0 Dehydration; Z91.14 Patient's other noncompliance with medication regimen; K58.1 Irritable bowel syndrome with constipation; K58.0 Irritable bowel syndrome with diarrhea; K64.9 Unspecified hemorrhoids; I48.0 Paroxysmal atrial fibrillation; I07.1 Rheumatic tricuspid insufficiency; I27.20 Pulmonary hypertension, unspecified; F17.210 Nicotine dependence, cigarettes, uncomplicated; K21.9 Gastro-esophageal reflux disease without esophagitis; E87.5 Hyperkalemia
CPT/HCPCS: 36600; 71045; 71046; 71275; 76942; 80048; 80053; 80162; 81003; 82042; 82378; 82533; 82803; 82945; 83540; 83615; 83735; 83880; 84100; 84157; 84443; 85025; 85610; 85651; 85730; 86140; 87070; 87081; 87086; 87102; 87116; 88104; 88305; 89051; 94640; 94664; 97161; 97166

== ENCOUNTER 2019-03-23 19:08 | Observation (INO) | payer MEDICARE, BC ==
[2019-03-23] MEDS: ALBUTEROL/IPRATROPIUM (NEB) 3 ML AMP HHN (19:51)
[2019-03-23 19:58] LABS: ADD MAN DIFF? NO
[2019-03-23 20:09] LABS: WHITE BLOOD COUNT 9.6 10^3/ul (4.8-10.8)
[2019-03-23 20:09] LABS: BASOPHIL # 0.1 10^3/ul (0.0-0.1); BASOPHILS % 0.8 % (0.0-2.0); EOSINOPHILS # 0.2 10^3/ul (0.0-0.5); EOSINOPHILS % 2.2 % (0.0-7.0); HEMATOCRIT 42.9 % (37.0-47.0); HEMOGLOBIN 14.2 g/dl (12.0-16.0); LYMPHOCYTES # 1.2 10^3/ul (0.8-2.9); LYMPHOCYTES % 12.9 % (15.0-51.0); MEAN CORPUSCULAR HEMOGLOBIN 30.1 pg (29.0-33.0); MEAN CORPUSCULAR HGB CONC 33.1 g/dl (32.0-37.0); MEAN CORPUSCULAR VOLUME 90.9 fl (82.0-101.0); MEAN PLATELET VOLUME 10.4 fl (7.4-10.4); MONOCYTE # 0.7 10^3/ul (0.3-0.9); MONOCYTES % 6.9 % (0.0-11.0); NEUTROPHIL # 7.3 10^3/ul (1.6-7.5); NEUTROPHILS % 76.6 % (39.0-77.0); PLATELET COUNT 256 10^3/UL (140-415); RED BLOOD COUNT 4.72 10^6/ul (4.20-5.40); RED CELL DISTRIBUTION WIDTH 14.5 % (11.5-14.5)
[2019-03-23 20:20] LABS: IRON 79 ug/dl (35-150)
[2019-03-23 20:22] LABS: ALANINE AMINOTRANSFERASE 27 IU/L (13-69); ALBUMIN 4.9 g/dl (3.3-4.9); ALBUMIN/GLOBULIN RATIO 1.16; ALKALINE PHOSPHATASE 85 IU/L (42-121); ANION GAP 13 (5-13); ASPARTATE AMINO TRANSFERASE 37 IU/L (15-46); BLOOD UREA NITROGEN 19 mg/dl (7-20); CALCIUM 10.8 mg/dl (8.4-10.2); CARBON DIOXIDE 26 mmol/L (21-31); CHLORIDE 98 mmol/L (97-110); CREATININE 0.89 mg/dl (0.44-1.00); Estimated GFR > 60 mL/min (>60); INR 1.03; MAGNESIUM 2.1 mg/dl (1.7-2.5); POTASSIUM 4.1 mmol/L (3.5-5.1); PROTIME 13.6 Sec (11.9-14.9); PT RATIO 1.1; SODIUM 137 mmol/L (135-144); TOTAL PROTEIN 9.1 g/dl (6.1-8.1)
[2019-03-23 20:23] LABS: GLUCOSE 95 mg/dl (70-220)
[2019-03-23 20:30] LABS: % IRON SATURATION 22 % SAT (22-52); TOTAL IRON BINDING CAPACITY 362 ug/dl (241-421)
[2019-03-23 20:51] LABS: CARCINOEMBRYONIC ANTIGEN 3.4 ng/ml (0.0-5.0)
[2019-03-23] MEDS ORDERED: DIPHENHYDRAMINE 25 MG CAP PO (22:30)
[2019-03-23] MEDS ORDERED: ALPRAZOLAM 0.25 MG TAB PO (22:30)
[2019-03-23] MEDS ORDERED: ZOLPIDEM 5 MG TAB PO (22:30)
[2019-03-24] MEDS: ALBUTEROL/IPRATROPIUM (NEB) 3 ML AMP HHN ×3 (01:40→14:16)
[2019-03-24] MEDS ORDERED: HYDROCODONE/APAP (10/325) TAB PO (02:30)
[2019-03-24] MEDS: PANTOPRAZOLE (EC) 40 MG TAB PO (05:47)
[2019-03-24] MEDS ORDERED: NON-FORMULARY/PATIENT OWN MED (Ubidecarenone* (Co Q-10*) 200 MG) PO (09:00)
[2019-03-24] MEDS ORDERED: FUROSEMIDE 40 MG TAB PO (09:00)
[2019-03-24] MEDS: LISINOPRIL 5 MG TAB PO (09:00)
[2019-03-24] MEDS: NICOTINE (7 MG/24 HR) PATCH TRANSDERM (09:19)
[2019-03-24] MEDS ORDERED: FENTAnyl 50 MCG/ML VIAL (10:43)
[2019-03-24] MEDS: ALPRAZOLAM 0.5 MG TAB PO (10:43)
[2019-03-24] MEDS: LIDOCAINE 1% (MPF) 5 ML VIAL (11:26)
[2019-03-24] MEDS: BUMETANIDE 1 MG TAB PO (11:58)
[2019-03-24 12:24] LABS: FLD RBC 3000 /uL; FLD WBC 659 /cmm
[2019-03-24 13:00] LABS: FLD TYPE THORACENTHESIS
[2019-03-24 13:00] LABS: FLD CLARITY CLOUDY; FLD COLOR YELLOW
[2019-03-24] MEDS ORDERED: DIGOXIN 0.125 MG TAB PO (13:00)
[2019-03-24 13:01] LABS: PATH REVIEW? YES
[2019-03-25] MEDS ORDERED: DIGOXIN 0.125 MG TAB PO (13:00)
== END 2019-03-24 17:00 | disposition left against medical advice (07) ==
LOC: PP2 19:08
DX: J90 Pleural effusion, not elsewhere classified (principal); I50.22 Chronic systolic (congestive) heart failure; I42.9 Cardiomyopathy, unspecified; I48.0 Paroxysmal atrial fibrillation; Z79.01 Long term (current) use of anticoagulants; I27.20 Pulmonary hypertension, unspecified; J44.9 Chronic obstructive pulmonary disease, unspecified; E11.9 Type 2 diabetes mellitus without complications; Z72.0 Tobacco use; Z95.810 Presence of automatic (implantable) cardiac defibrillator
CPT/HCPCS: 32555; 71045; 71046; 76942; 80053; 82042; 82378; 83540; 83735; 84443; 85025; 85610; 87070; 87102; 87116; 88104; 88305; 89051; 94640; 94664; 99217

== ENCOUNTER 2019-04-20 20:16 | Observation (INO) | payer MEDICARE, BC ==
[2019-04-20] MEDS ORDERED: traMADol 50 MG TAB GTB (23:30)
[2019-04-20] MEDS ORDERED: ZOLPIDEM 5 MG TAB PO (23:30)
[2019-04-20] MEDS ORDERED: HYDROCODONE/APAP (5/325) TAB PO (23:30)
[2019-04-20] MEDS ORDERED: ALPRAZOLAM 0.5 MG TAB PO (23:30)
[2019-04-20 23:44] LABS: ADD MAN DIFF? NO
[2019-04-20 23:45] LABS: BASOPHIL # 0.1 10^3/ul (0.0-0.1); BASOPHILS % 0.6 % (0.0-2.0); EOSINOPHILS # 0.3 10^3/ul (0.0-0.5); EOSINOPHILS % 2.6 % (0.0-7.0); HEMATOCRIT 40.8 % (37.0-47.0); HEMOGLOBIN 13.4 g/dl (12.0-16.0); LYMPHOCYTES # 1.9 10^3/ul (0.8-2.9); LYMPHOCYTES % 19.4 % (15.0-51.0); MEAN CORPUSCULAR HEMOGLOBIN 29.9 pg (29.0-33.0); MEAN CORPUSCULAR HGB CONC 32.8 g/dl (32.0-37.0); MEAN CORPUSCULAR VOLUME 91.1 fl (82.0-101.0); MEAN PLATELET VOLUME 9.9 fl (7.4-10.4); MONOCYTE # 0.5 10^3/ul (0.3-0.9); NEUTROPHIL # 6.9 10^3/ul (1.6-7.5); NEUTROPHILS % 71.8 % (39.0-77.0); PLATELET COUNT 245 10^3/UL (140-415); RED BLOOD COUNT 4.48 10^6/ul (4.20-5.40); RED CELL DISTRIBUTION WIDTH 14.6 % (11.5-14.5)
[2019-04-20 23:45] LABS: WHITE BLOOD COUNT 9.6 10^3/ul (4.8-10.8)
[2019-04-21 00:03] LABS: ANION GAP 12 (5-13); BLOOD UREA NITROGEN 20 mg/dl (7-20); CALCIUM 10.1 mg/dl (8.4-10.2); CARBON DIOXIDE 22 mmol/L (21-31); CHLORIDE 100 mmol/L (97-110); CREATININE 0.77 mg/dl (0.44-1.00); Estimated GFR > 60 mL/min (>60); GLUCOSE 137 mg/dl (70-220); SODIUM 134 mmol/L (135-144)
[2019-04-21 00:05] LABS: INR 1.07; PARTIAL THROMBOPLASTIN TIME 34.7 Sec (23.0-35.0); PT RATIO 1.1
[2019-04-21 00:07] LABS: DIGOXIN 0.6 ng/ml (1.0-2.0)
[2019-04-21 00:15] LABS: IRON 65 ug/dl (35-150)
[2019-04-21 00:24] LABS: % IRON SATURATION 18 % SAT (22-52)
[2019-04-21 00:25] LABS: TOTAL IRON BINDING CAPACITY 363 ug/dl (241-421)
[2019-04-21] MEDS: ALBUTEROL/IPRATROPIUM (NEB) 3 ML AMP HHN ×2 (00:52→08:00)
[2019-04-21] MEDS: ALBUMIN HUMAN 25% 100 ML IV ×2 (01:43→10:08)
[2019-04-21] MEDS: traMADol 50 MG TAB PO (02:24)
[2019-04-21] MEDS: PANTOPRAZOLE (EC) 40 MG TAB PO (05:38)
[2019-04-21 06:17] LABS: ADD UMIC NO; UR ASCORBIC ACID 40 mg/dL (NEGATIVE); UR BACTERIA FEW /HPF (NONE SEEN); UR BILIRUBIN (Dip) NEGATIVE (NEGATIVE); UR BLOOD (Dip) NEGATIVE (NEGATIVE); UR CLARITY SLIGHTLY CLOUDY (CLEAR); UR COLOR AMBER (YELLOW); UR GLUCOSE (Dip) NEGATIVE (NEGATIVE); UR HYALINE CAST FEW /HPF (NONE SEEN); UR KETONES (Dip) NEGATIVE (NEGATIVE); UR LEUKOCYTE ESTERASE (Dip) NEGATIVE Leu/ul (NEGATIVE); UR NITRITE (Dip) NEGATIVE (NEGATIVE); UR RBC 1 /HPF (0-5); UR SPECIFIC GRAVITY (Dip) 1.017 (1.003-1.030); UR SQUAMOUS EPITHELIAL CELL FEW /HPF (FEW); UR TOTAL PROTEIN (Dip) NEGATIVE (NEGATIVE); UR UROBILINOGEN (Dip) NEGATIVE (NEGATIVE); UR WBC 2 /HPF (0-5)
[2019-04-21] MEDS: BUMETANIDE 1 MG TAB PO (09:00)
[2019-04-21] MEDS ORDERED: HEPARIN 1000 UNITS/NS (A-LINE) 1,000 ML (09:31)
[2019-04-21] MEDS: LIDOCAINE 1% (MPF) 5 ML VIAL (09:33)
[2019-04-21 09:36] LABS: WHITE BLOOD COUNT 7.2 10^3/ul (4.8-10.8)
[2019-04-21] MEDS: NICOTINE (7 MG/24 HR) PATCH TRANSDERM (10:08)
[2019-04-21] MEDS: SPIRONOLACTONE 50 MG TAB PO (10:19)
[2019-04-21] MEDS: DIGOXIN 0.125 MG TAB PO (12:50)
== END 2019-04-21 13:55 | disposition home or self-care (01) ==
LOC: 2NE 20:16
DX: R06.03 Acute respiratory distress (principal); J94.8 Other specified pleural conditions; J44.1 Chronic obstructive pulmonary disease with (acute) exacerbation; J90 Pleural effusion, not elsewhere classified; R19.7 Diarrhea, unspecified; K59.00 Constipation, unspecified; R63.4 Abnormal weight loss; Z68.26 Body mass index [BMI] 26.0-26.9, adult; H91.90 Unspecified hearing loss, unspecified ear; R32 Unspecified urinary incontinence; N39.0 Urinary tract infection, site not specified; F17.200 Nicotine dependence, unspecified, uncomplicated; F43.10 Post-traumatic stress disorder, unspecified; M40.209 Unspecified kyphosis, site unspecified; M81.0 Age-related osteoporosis without current pathological fracture; E11.9 Type 2 diabetes mellitus without complications
CPT/HCPCS: 32555; 71045; 71046; 80048; 80162; 81001; 81003; 82042; 83540; 83735; 85025; 85048; 85610; 85730; 87070; 87102; 87116; 88104; 88305; 93005; 94640; 94664; G0378